=== PATIENT | female | born 1965 | race Caucasian/White ===

== ENCOUNTER 2020-12-15 15:49 | Outpatient (CLI) | payer OTHER, BC, SELFPAY ==
[2020-12-15 16:03] LABS: Hematocrit 40.7 % (35.0-49.0); Hemoglobin 12.9 g/dL (12.0-15.0); Mean Corpuscular HGB Conc 31.7 g/dL (32.0-36.0); Mean Corpuscular Hemoglobin 28.4 pg (27.0-31.0); Mean Corpuscular Volume 89.6 fL (78.0-102.0); Platelet Count Result 207 K/mm3 (150-420); Red Blood Count 4.54 M/mm3 (4.20-5.40); Red Cell Distribution Width 13.1 % (11.6-14.4); White Blood Count 4.8 K/mm3 (4.8-10.8)
[2020-12-15 17:09] LABS: Alanine Aminotransferase 24 U/L (14-59); Alkaline Phosphatase 46 U/L (46-116); Anion Gap 8 mmol/L (8-16); Aspartate Amino Transferase 17 U/L (15-37); Bilirubin,Total 0.4 mg/dL (0.00-1.00); Blood Urea Nitrogen 10 mg/dL (7-18); Calcium 9.2 mg/dL (8.5-10.1); Carbon Dioxide 29 mmol/L (21-32); Chloride 104 mmol/L (98-108); Cholesterol 216 mg/dL (0-200); Estimated Glomerular Filt Rate > 60; Glucose 99 mg/dL (70-99); HDL Direct 63 mg/dL (40-60); LDL Cholesterol Calculated 134 mg/dL (<130); Osmolality Calculated 291 mOsm/kg (285-295); Potassium 3.9 mmol/L (3.5-5.1); Sodium 141 mmol/L (136-145); Total Protein 7.1 g/dL (6.4-8.2); Triglycerides 95 mg/dL (0-150)
== END 2020-12-15 15:50 | disposition home or self-care (01) ==
LOC: CHSLAB 15:51
PROVIDERS: PCP Family Medicine; Visit Provider Family Medicine
DX: I10 Essential (primary) hypertension (principal)
CPT/HCPCS: 36415; 80053; 80061; 85027

== ENCOUNTER 2020-12-18 14:20 | Outpatient (CLI) | payer BC, OTHER, SELFPAY ==
--- NOTE | ~2020-12-18 | MM_ITS ---
EXAMINATION: MM screening brenda BI w [facility] HISTORY: Screening TECHNIQUE: Craniocaudal and mediolateral oblique 3-D tomosynthesis images were obtained and synthetic 2-D images were generated. CAD analysis was submitted and interpreted. COMPARISON: 02/22/2017 BREAST PARENCHYMAL COMPOSITION: There are scattered areas of fibroglandular density. FINDINGS: There is no evidence of suspicious mass, calcification, or architectural distortion to sugg est malignancy in either breast. There has been no suspicious interval change. IMPRESSION: 1. No mammographic evidence of malignancy. 2. Recommend routine screening mammography in one year. BI-RADS Category 1: Negative Reviewed, dictated and finalized at location A.
--- NOTE | ~2020-12-18 | DEXA_ITS ---
Bone Density Report Name: Jessika Yoon Age: 55 Sex: Female Ethnicity: White Date of : 1965 Indication: postmenopausal; screening for osteoporosis; prior fracture; hysterectomy; Referring Provider: Juan Jose Carson Study: Bone densitometry was performed. Exam Date: December 18, 2020 Accession number: [id number] Bone Density: Region BMD T-score Z-score Classification AP Spine(L1, L2, L4) 0.857 -1.6 -0.5 Osteopenia Femoral Neck (Left) 0.551 -2.7 -1.6 Osteoporosis Total Hip (Left) 0.737 -1.7 -1.0 Osteopenia Femoral Neck (Right) 0.552 -2.7 -1.6 Osteoporosis Total Hip (Right) 0.808 -1.1 -0.4 Osteopenia Femoral Neck Mean 0.552 -2.7 -1.6 Osteoporosis Total Hip Mean 0.773 -1.4 -0.7 Osteopenia World Health Organization criteria for BMD impression classify patients as: Normal (T-score at or above -1.0), Osteopenia (T-score between -1.0 and -2.5), or Osteoporosis (T-score at or below -2.5). 10-year Fracture Risk: FRAX not reported because: Some T-score for Spine Total or Hip Total or Femoral Neck at or below -2.5 Clinical Information Provided by Patient: Has had a low trauma fracture Has used the following medications: Reclast (i.e. zoledronate), Calcium, multivitamin Has the following medical conditions: Hysterectomy Menopause Age: 24 No regular weight bearing exercise Does not regularly consume dairy products Drinks caffeinated beverages Onset of menses at age 9 Number of children 2 Impression: The patient has established osteoporosis, based on the Left Femoral Neck T-score and the existence of a prior fracture. The patient has risk factors, including: previous fracture. Discussion: HIGH RISK OF FRACTURE. BONE DENSITY IS UNDESIRABLY LOW AT ONE OR MORE SKELETAL SITES, CONSISTENT WITH POSTMENOPAUSAL OSTEOPOROSIS. This patient's lowest T-score, in a patient who has previously fractured, meets the World Health Organization's (WHO) criteria for severe osteoporosis. In untreated patients, the risk of osteoporotic fracture increases approximately two-fold for each 1.0 SD decrease in T-score. Low bone density is not the only risk factor for fracture; also consider factors such as patient's age, frailty or poor health, risk of falling, risk of injury, previous osteoporotic fracture, family history of osteoporosis, cigarette smoking, low body weight, etc. Not everyone with low bone mineral density has osteoporosis; osteomalacia and other metabolic bone disorders should also be considered. Patients who have osteoporosis should be evaluated for specific diseases and conditions (secondary causes) that may cause or contribute to bone loss. The [place] [employer] (AACE) and National Osteoporosis Foundation (NOF) recommend pharmacologic intervention for all postmenopausal
== END 2020-12-18 14:21 | disposition home or self-care (01) ==
PROVIDERS: PCP Family Medicine; Visit Provider Family Medicine
DX: Z12.31 Encounter for screening mammogram for malignant neoplasm of breast (principal); Z78.0 Asymptomatic menopausal state
CPT/HCPCS: 77063; 77067; 77080

== ENCOUNTER 2021-11-06 15:33 | Outpatient (CLI) | payer BC, OTHER, SELFPAY ==
[2021-11-06 16:12] LABS: SARS-CoV-2 Ag Negative (Negative)
== END 2021-11-06 15:34 | disposition home or self-care (01) ==
LOC: CHSLAB 15:35
PROVIDERS: PCP Nurse Practitioner Family; Visit Provider Nurse Practitioner Family
DX: Z20.822 Contact with and (suspected) exposure to COVID-19 (principal)
CPT/HCPCS: 87426; C9803

== ENCOUNTER 2022-03-08 16:34 | Outpatient (CLI) | payer BC, OTHER, SELFPAY ==
--- NOTE | ~2022-03-08 | XR_ITS ---
XR sacrum coccyx min 2V DATE: 03/08/2022 17:06 INDICATION: Injury 3 days ago, pain at sacrum TECHNIQUE: AP, angled AP and lateral views COMPARISON: 07/13/2017 pelvis FINDINGS: The pubic symphysis and sacroiliac joints appear intact. No sacral fracture or bone destruc tion is evident. IMPRESSION: Negative Reviewed, dictated and finalized at location A. IMPRESSION: Negative
--- NOTE | ~2022-03-08 | XR_ITS ---
EXAM: XR foot LT min 3V DATE: 04/16/2022 23:04 HISTORY: Foot pain . COMPARISON: None available. FINDINGS: Distal tibial and fibular fixation hardware, incompletely evaluated. Decreased mineralizat ion. No fracture or dislocation. No lytic or blastic lesion. Degenerative changes at the tibiotalar j oint, midfoot joints, and first MTP. Plantar and Achilles enthesopathy. No erosion or periosteal mccarthy ge. Soft tissues within normal limits. IMPRESSION: No acute osseous finding in the left foot. Reviewed, dictated and finalized at location K.
[2022-03-08 17:07] LABS: Alanine Aminotransferase 31 U/L (14-59); Albumin Level 4.2 g/dL (3.4-5.0); Alkaline Phosphatase 61 U/L (46-116); Anion Gap 10 mmol/L (8-16); Aspartate Amino Transferase 28 U/L (15-37); Bilirubin,Total 0.6 mg/dL (0.00-1.00); Blood Urea Nitrogen 13 mg/dL (7-18); Calcium 9.2 mg/dL (8.5-10.1); Carbon Dioxide 27 mmol/L (21-32); Chloride 103 mmol/L (98-108); Cholesterol 213 mg/dL (0-200); Estimated Glomerular Filt Rate 52; Glucose 96 mg/dL (70-99); HDL Direct 85 mg/dL (40-60); LDL Cholesterol Calculated 115 mg/dL (<130); Osmolality Calculated 290 mOsm/kg (285-295); Potassium 3.2 mmol/L (3.5-5.1); Sodium 140 mmol/L (136-145); Total Protein 7.9 g/dL (6.4-8.2); Triglycerides 63 mg/dL (0-150)
[2022-03-08 18:27] LABS: Thyroid Stimulating Hormone Reflex 0.86 u/IU/mL (0.36-3.74)
[2022-03-11 12:50] LABS: ANA Cascade Screen Positive (Negative)
[2022-03-12 15:28] LABS: Chromatin (Nucleosomal) Ab <1.0; RNP Antibody 1.4; Sm Antibody <1.0; Sm/RNP Antibody <1.0
== END 2022-03-08 16:35 | disposition home or self-care (01) ==
LOC: CHSLAB 16:37
PROVIDERS: PCP Family Medicine; Visit Provider Family Medicine
DX: R21 Rash and other nonspecific skin eruption (principal); M53.3 Sacrococcygeal disorders, not elsewhere classified; E11.9 Type 2 diabetes mellitus without complications
CPT/HCPCS: 36415; 72220; 80053; 80061; 84443; 86038

== ENCOUNTER 2022-04-16 22:59 | Outpatient (CLI) | payer BC, OTHER, SELFPAY ==
--- NOTE | ~2022-04-16 | XR_ITS ---
EXAM: XR foot LT min 3V DATE: 04/16/2022 23:04 HISTORY: Foot pain . COMPARISON: None available. FINDINGS: Distal tibial and fibular fixation hardware, incompletely evaluated. Decreased mineralizat ion. No fracture or dislocation. No lytic or blastic lesion. Degenerative changes at the tibiotalar j oint, midfoot joints, and first MTP. Plantar and Achilles enthesopathy. No erosion or periosteal mccarthy ge. Soft tissues within normal limits. IMPRESSION: No acute osseous finding in the left foot. Reviewed, dictated and finalized at location K.
== END 2022-04-16 23:00 | disposition home or self-care (01) ==
LOC: CHSIMG 23:01
PROVIDERS: Visit Provider Family Medicine
DX: M79.673 Pain in unspecified foot (principal)
CPT/HCPCS: 73630

== ENCOUNTER 2023-03-04 20:37 | Outpatient (CLI) | payer BC, OTHER, SELFPAY ==
[2023-03-04 21:07] LABS: Hematocrit 42.9 % (35.0-49.0); Hemoglobin 13.6 g/dL (12.0-15.0); Mean Corpuscular HGB Conc 31.7 g/dL (32.0-36.0); Mean Corpuscular Volume 91.5 fL (78.0-102.0); Mean Platelet Volume 12.3 fl (9.2-11.8); Platelet Count Result 199 K/mm3 (150-420); Red Blood Count 4.69 M/mm3 (4.20-5.40); Red Cell Distribution Width 13.1 % (11.6-14.4); White Blood Count 5.5 K/mm3 (4.8-10.8)
[2023-03-04 21:24] LABS: Alanine Aminotransferase 24 U/L (14-59); Albumin Level 3.8 g/dL (3.4-5.0); Alkaline Phosphatase 48 U/L (46-116); Anion Gap 7 mmol/L (8-16); Aspartate Amino Transferase 15 U/L (15-37); Bilirubin,Total 0.4 mg/dL (0.00-1.00); Blood Urea Nitrogen 12 mg/dL (7-18); Calcium 8.7 mg/dL (8.5-10.1); Carbon Dioxide 28 mmol/L (21-32); Chloride 106 mmol/L (98-108); Estimated Glomerular Filt Rate > 60; Glucose 96 mg/dL (70-99); Osmolality Calculated 291 mOsm/kg (285-295); Potassium 3.9 mmol/L (3.5-5.1); Sodium 141 mmol/L (136-145)
[2023-03-04 21:30] LABS: Thyroid Stimulating Hormone Reflex 0.79 u/IU/mL (0.36-3.74)
== END 2023-03-04 20:38 | disposition home or self-care (01) ==
LOC: CHSLAB 20:39
PROVIDERS: PCP Family Medicine; Visit Provider Family Medicine
DX: E11.9 Type 2 diabetes mellitus without complications (principal); I10 Essential (primary) hypertension
CPT/HCPCS: 36415; 80053; 84443; 85027